=== PATIENT | female | born 1940 | race Caucasian/White ===

== ENCOUNTER 2022-03-16 22:13 | Emergency (ER) | payer OTHER ==
[~2022-03-16] VITALS: Ht 160 cm; Wt 67.6 kg
[~2022-03-16 22:13] MED LIST: ASPI-1393 PO; ISOS20TA8 PO; LIP20 PO
[2022-03-16 22:22] VITALS: BP_SYST 205
--- NOTE | 2022-03-16 22:22 | NUR ---
Pt BIB BLS from home with c/o numbness and tingling to left face and LHA x 20 minutes, onset 30 minutes [employer]. Symptoms resolved prior to arrival of ambulance. No focal neurodeficits noted. No available ER beds. Pt on ambulance [place] with EMS at side. NAD. Addendum: 03/16/22 at 2342 by [email or web address] Pt arrived via ALS. [address] in place upon arrival.
--- NOTE | 2022-03-16 22:40 | NUR ---
Dr. Rod made aware of B/P . No new orders.
--- NOTE | 2022-03-16 23:35 | NUR ---
Pt placed to ER hallway bed 1. Addendum: 03/16/22 at 2336 by [email or web address] Placed on portable manager balance, ROXANASNAD. Denies c/o numbness or tingling, no focal neurodeficits noted.
[2022-03-16 23:41] LABS: BASOPHILS % (AUTO) 0.6 % (0.0-2.0); EOSINOPHILS # (AUTO) 0.2 K/uL (0.0-0.4); EOSINOPHILS % (AUTO) 4.9 % (0.0-4.0); HEMATOCRIT 37.3 % (36-48); HEMOGLOBIN 12.5 g/dL (12.0-16.0); LYMPHOCYTES # (AUTO) 1.8 K/uL (1.0-5.5); LYMPHOCYTES % (AUTO) 37.6 % (20.5-51.5); MEAN CORPUSCULAR HEMOGLOBIN 33 pg (27-31); MEAN CORPUSCULAR HGB CONC 34 % (32-36); MEAN CORPUSCULAR VOLUME 98 fL (79.0-98.0); MONOCYTES # (AUTO) 0.7 K/uL (0.0-1.0); MONOCYTES % (AUTO) 13.9 % (1.7-9.3); NEUTROPHILS # (AUTO) 2.1 K/uL (1.8-7.7); PLATELET COUNT (AUTO) 219 K/uL (130-430); RED BLOOD CELL COUNT(AUTO) 3.79 MIL/uL (4.2-6.2); RED CELL DISTRIBUTION WIDTH 14.1 % (9.0-15.0); WHITE BLOOD COUNT (AUTO) 4.9 K/uL (4.8-10.8)
--- NOTE | 2022-03-16 23:55 | NUR ---
Consents signed for CTA.
[2022-03-16 23:59] LABS: ANION GAP 5 (5-15); CALCIUM 9.1 mg/dL (8.4-11.0); CHLORIDE 108 mmol/L (98-107); CREATININE 1.31 mg/dL (0.55-1.30); GLUCOSE 99 mg/dL (70-99); UREA NITROGEN, BLOOD 25 mg/dL (8-21)
[2022-03-17] LABS: BILIRUBIN,URINE NEGATIVE (NEGATIVE); BLOOD, URINE NEGATIVE (NEGATIVE); CLARITY/URINE SL CLOUDY (CLEAR); COLOR,URINE YELLOW (YELLOW); GLUCOSE,URINE NEGATIVE (NEGATIVE); KETONES,URINE NEGATIVE (NEGATIVE); LEUKOCYTE ESTERASE ,URINE 2+ (NEGATIVE); NITRITE, URINE NEGATIVE (NEGATIVE); PROTEIN URINE NEGATIVE (NEGATIVE); UROBILINOGEN,URINE 0.2 (0.2-1.0)
[2022-03-17] MEDS ORDERED: iohexoL 350 mgI/mL, 100 ML INFUS..BTL IV ONE (00:03)
[2022-03-17 00:08] LABS: ALANINE AMINOTRANSFERASE 45 U/L (12-78); ALBUMIN 3.6 g/dL (3.4-4.8); ASPARTATE AMINOTRANSFERASE 27 U/L (10-37); TOTAL BILIRUBIN 0.6 mg/dL (0.0-1.0)
--- NOTE | 2022-03-17 00:10 | NUR ---
Pt to CT.
--- NOTE | 2022-03-17 00:15 | NUR ---
Pt returns from CT. Denies c/o pain or discomfort, no further c/o numbness or tingling. No focal neurodeficits noted.
[2022-03-17 00:22] LABS: RBC,URINE 0-3 /HPF (0-3)
[2022-03-17 00:23] LABS: BACTERIA,URINE MANY /HPF (None Seen); WBC,URINE >100 /HPF (0-3)
[2022-03-17 00:28] LABS: BARBITURATE, URINE NEGATIVE (NEG <=200); BENZODIAZEPINE, URINE NEGATIVE (NEG <=150); CANNABINOID, URINE NEGATIVE (NEG <=50); COCAINE, URINE NEGATIVE (NEG <=150); METHAMPHETAMINES SCREEN,URINE NEGATIVE (NEG <=500); OPIATE, URINE NEGATIVE (NEG <=100); PHENCYCLIDINE SCREEN,URINE NEGATIVE (NEG <=25); UR TRICYCLIC ANTIDEPRESSANTS NEGATIVE (NEG <=300); URINE AMPHETAMINE NEGATIVE (NEG <=500); URINE METHADONE NEGATIVE (NEG <=200); URINE OXYCODONE SCREEN NEGATIVE (NEG <=100); URINE PROPOXYPHENE SCREEN NEGATIVE (NEG <=300)
[2022-03-17] MEDS ORDERED: cefTRIAXone 1 GM in D5W 50 ML IV ONE (01:15)
[2022-03-17] MEDS ORDERED: LOSARTAN POTASSIUM 25 MG TABLET PO ONE (01:30)
--- NOTE | 2022-03-17 01:34 | NUR ---
Pt placed to ER bed 07, report given to DAYRON Urbano.
--- NOTE | 2022-03-17 01:35 | NUR ---
REC REPORT FROM REBECCA PADGETT. PT AWAKE IN BED, A&O X4, AND FOLLOWING COMMANDS. PT BIBA FOR LEFT SIDED FACIAL NUMBESS AND TINGLING, WHICH SHE STATES RESOLVED. PT DENIES DISCOMFORT AT THIS TIME. SBP 165, MD MADE AWARE. VSS. SAFETY PRECAUTIONS IN PLACE AND COONNECTED TO MONITOR.
--- NOTE | 2022-03-17 01:53 | NUR ---
COVID SWAB OBTAINED AND SENT TO LAB.
--- NOTE | 2022-03-17 01:59 | NUR ---
LAB CALLED AND NOTIFIED THAT BLOOD CULTURES ARE NOT AVAILABLE. MADE AWARE THAT CULTURES NEED TO BE DRAWN BEFORE IV ANTIBIOTIV. APPROVED GIVING ANTIBIOTICS WITHOUT BLOOD CULTURES BEING DRAWN.
[2022-03-17] MEDS ORDERED: cefTRIAXone 1 GM VIAL ONE (02:06)
--- NOTE | 2022-03-17 02:16 | NUR ---
BLOOD SUGAR 88. MADE AWARE.
[2022-03-17] MEDS ORDERED: LOSARTAN POTASSIUM 25 MG TABLET ONE (02:40)
--- NOTE | 2022-03-17 03:28 | NUR ---
REPORT CALLED TO ANTONINO PADGETT FROM [facility]. ALL QUESTIONS AND CONCERNS ADDRESSED AT THIS POINT.
[2022-03-17 03:58] VITALS: BP_SYST 188
--- NOTE | 2022-03-17 03:58 | NUR ---
Patient to be transferred to [facility]. Is being transferred due to higher level of care. Receiving facility has accepting physician and available space. ER physician has signed transfer form. Patient or responsible alliance party has agreed to transfer and signed form. Patient belongings inventoried and will be sent with patient. Copy of nursing notes, lab reports, EKG, Physicians Orders and X-rays to be sent with patient. Report called to ANTONINO PADGETT at receiving facility. Receiving physician is RAJ. [facility] has been called for transfer. ETA is 0400.
== END 2022-03-17 03:58 | disposition short-term general hospital (02) ==
LOC: SED 22:13
DX: G45.9 Transient cerebral ischemic attack, unspecified (principal); N39.0 Urinary tract infection, site not specified; I11.0 Hypertensive heart disease with heart failure; I50.9 Heart failure, unspecified; Z79.899 Other long term (current) drug therapy; Z20.822 Contact with and (suspected) exposure to COVID-19
CPT/HCPCS: 99291; 71045; 87426; 80307; 80053; 82962; 85025; 86886; 86900; 86901; 87086; 84484; 36415; 81000; 70496; 96365; 70498; 70450; 80048; 76376; Q9967; J0696; 93005

== ENCOUNTER 2022-09-05 20:44 | Emergency (ER) | payer OTHER ==
[2022-09-05 20:49] VITALS: BP_SYST 141
--- NOTE | 2022-09-05 20:55 | NUR ---
pt was bib [facility] ambulance [facility]#6112 for right eye brow pain no trauma noted. pt also c/o visual disturbances thatstarted x30 min ago.
--- NOTE | 2022-09-05 21:58 | NUR ---
Patient to ER bed 08 to gown for evaluation. Side rails up. Report given to GLORIA HUGGINS
--- NOTE | 2022-09-05 22:05 | NUR ---
PT BIB BLS FROM HOME, ASSISTED TO BED 8 VIA [employer]. PT A&Ox4, ABLE TO MAKE NEEDS KNOWN. PT C/O BLURRY VISION ON LEFT EYE BEGINNING TODAY. PT C/O OF RIGHT EYEBROW PAIN. PT RATES PAIN 3/10. PT DESCRIBES PAIN SHARP. PT DENIES N/V/D, SOB AND CHEST PAIN. PT DENIES FEVER AND CHILLS. SAFETY PRECAUTIONS IN PLACE.
--- NOTE | 2022-09-05 23:00 | NUR ---
ER Dr. NORWOOD at bedside examining patient.
[2022-09-05] MEDS ORDERED: iohexoL 350 mgI/mL, 100 ML INFUS..BTL IV ONE (23:23)
[2022-09-05] MEDS ORDERED: NACL 0.9% 1,000 ML IV ONE (23:45)
--- NOTE | 2022-09-06 00:15 | NUR ---
SPOKE WITH BILLIARD TABLE REPAIRER JOSH. JOSH REQUESTED A CLINICAL NOTE AND FACE SHEET. MADE BILLIARD TABLE REPAIRER AWARE THAT ONCE BLOOD WORK RESULTS WERE IN THAT REQUESTED INFO WILL BE FAXED TO [phone].
[2022-09-06 00:25] LABS: ANION GAP 10 (5-15); BASOPHILS % (AUTO) 0.5 % (0.0-2.0); CALCIUM 8.8 mg/dL (8.4-11.0); CHLORIDE 101 mmol/L (98-107); CREATININE 1.56 mg/dL (0.55-1.30); EOSINOPHILS # (AUTO) 0.3 K/uL (0.0-0.4); EOSINOPHILS % (AUTO) 4.4 % (0.0-4.0); GLUCOSE 109 mg/dL (70-99); HEMATOCRIT 36.5 % (36-48); HEMOGLOBIN 12.5 g/dL (12.0-16.0); LYMPHOCYTES # (AUTO) 2.6 K/uL (1.0-5.5); LYMPHOCYTES % (AUTO) 39.4 % (20.5-51.5); MEAN CORPUSCULAR HEMOGLOBIN 33 pg (27-31); MEAN CORPUSCULAR HGB CONC 34 % (32-36); MEAN CORPUSCULAR VOLUME 96 fL (79.0-98.0); MONOCYTES # (AUTO) 0.7 K/uL (0.0-1.0); MONOCYTES % (AUTO) 11.1 % (1.7-9.3); NEUTROPHILS % (AUTO) 44.6 % (40.0-70.0); PLATELET COUNT (AUTO) 197 K/uL (130-430); RED CELL DISTRIBUTION WIDTH 13.9 % (9.0-15.0); UREA NITROGEN, BLOOD 39 mg/dL (8-21); WHITE BLOOD COUNT (AUTO) 6.6 K/uL (4.8-10.8)
[2022-09-06 00:44] LABS: ALANINE AMINOTRANSFERASE 65 U/L (12-78); ALBUMIN 3.5 g/dL (3.4-4.8); ASPARTATE AMINOTRANSFERASE 37 U/L (10-37); TOTAL BILIRUBIN 0.7 mg/dL (0.0-1.0)
[2022-09-06] MEDS ORDERED: NACL 0.9% 1,000 ML IV ONE (02:30)
--- NOTE | 2022-09-06 04:31 | NUR ---
Note garcía in ED - 09/06/22 at 0433 by [email or web address] EMS at bedside. Report given to EMT. Patient transferred to EMS [facility]. Patient departed [facility] ER to ambulance enroute to [facility] Room 5030 in stable condition.
[2022-09-06 05:13] VITALS: BP_SYST 126
--- NOTE | 2022-09-06 05:38 | NUR ---
Patient to be transferred to [facility]. Is being transferred due to higher level of care. Receiving facility has accepting physician and available space. ER physician has signed transfer form. Patient or responsible republican has agreed to transfer and signed form. Patient belongings inventoried and will be sent with patient. Copy of nursing notes, lab reports, EKG, Physicians Orders and X-rays to be sent with patient. Report called to DAYRON Brumfield at receiving facility. Receiving physician is Dr Ordonez. [facility] service has been called for transfer. ETA is 25 mins.
== END 2022-09-06 05:13 | disposition short-term general hospital (02) ==
LOC: SED 20:44
DX: G45.9 Transient cerebral ischemic attack, unspecified (principal); I48.91 Unspecified atrial fibrillation; I10 Essential (primary) hypertension; E78.5 Hyperlipidemia, unspecified; H54.62 Unqualified visual loss, left eye, normal vision right eye; H57.11 Ocular pain, right eye; Z79.899 Other long term (current) drug therapy; Z20.822 Contact with and (suspected) exposure to COVID-19
CPT/HCPCS: 99285; 70496; 71045; 87426; 80053; 85025; 84484; 36415; 93005; 70498; 70450; 96360; 96361; 76376; Q9967; J7030